=== PATIENT | female | born 1965 | race Caucasian/White ===

== ENCOUNTER 2025-02-19 21:12 | Emergency (ER) | payer OTHER, SELFPAY ==
[2025-02-19 21:32] VITALS: BP 141/88
[2025-02-20 00:40] VITALS: BP 140/80
--- NOTE | 2025-02-20 00:51 | ED.GENMED ---
History of Present Illness
General
Chief Complaint: Musculo-Skeletal Complaint
Source: patient
Exam Limitations: none
Time Seen by Provider: 02/19/25 23:12
History of Present Illness
History of Present Illness:
This is a 59-year-old female who presents with concerns of pain and swelling of her toe. The patient dropped a sink basin on her toe yesterday she was seen urgent care and diagnosed with fracture of first and second toe. Patient reports today that
she has sort of a numbness send there was a paleness to it when she had her foot up elevated on the couch. Patient just became concerned and wanted to know if it was normal. She does have a postop shoe
Past History
Past History
ED Past Medical History: None
ED Past Surgical History: None
Social History
Tobacco: Non-smoker
Alcohol: None
Drug: None
Living: with family
Family History
Family History: Other (Father with non-Hodgkin's lymphoma, renal cell carcinoma and bladder cancer)
Phy Exam
Physical Exam
Physical Exam:
CONSTITUTIONAL Vital signs reviewed, Patient alert and oriented to person, place and time. Well-appearing
HEAD atraumatic, normocephalic.
EYES eyelids normal to inspection, Extraocular muscles intact, Conjunctiva normal, Sclera normal.
NECK normal range of motion, Trachea midline, no jugular venous distention.
RESP no respiratory distress
BACK No obvious deformities
UPPER EXTREMITY Gross Range of motion normal, gross motor strength normal
LOWER EXTREMITY Gross range of motion normal, Gross motor strength normal. Skin abrasion noted to the area just proximal to the nailbed. She has a small subungual hematoma. She has moderate swelling throughout the great toe. She also has some
ecchymosis noted to the second digit on the right. She has normal dorsalis pedis pulses
NEURO Speech normal, No focal motor deficits include, Valentin coma scale 15, Memory normal, Cranial Nerves intact to screening exam.
SKIN Skin warm, dry, and normal in color.
PSYCHIATRIC Patient oriented to person place and time, Normal affect.
Course
Vital Signs
Initial and Last Documented VS:
Initial Vital Signs
Temp Pulse Resp BP Pulse Ox
98.2 F 64 20 141/88 98
02/19/25 21:32 02/19/25 21:32 02/19/25 21:32 02/19/25 21:32 02/19/25 21:32
Last Documented Vital Signs
Temp Pulse Resp BP Pulse Ox
98.2 F 56 18 140/80 98
02/19/25 21:32 02/20/25 00:40 02/20/25 00:40 02/20/25 00:40 02/20/25 00:40
*Pulse Oximetry
Patient hypoxic: no
*Critical Care Note
Total Time (30-74mins, 75-104mins- exclusive of procedures): Not Applicable
Data Reviewed
Source: patient
Further Testing Considered But Not Given:
Consider repeat imaging no new changes.
Patient Management
Escalation/DeEscalation of care consider admission/obs:
Suspect symptoms related to the mild swelling related to the fractures. Will refer to orthopedic podiatry
ED Attending Note
-
Portions of this chart may have been created with voice recognition software.� Occasional wrong word or��sound alike� substitutions may have occurred due to the inherent limitations of voice recognition software.
Discharge Plan
Departure
Patient Disposition: Home (Routine Discharge)
Date of Disposition: 02/20/25
Time of Disposition: 00:52
Patient with high blood pressure during this ER visit?: No
Discharge Problem:
Fracture of toe
Instructions: Toe fracture
Prescriptions:
No Action
tamsulosin 0.4 MG capsule
0.4 mg PO DAILY Qty: 10 0RF
oxycodone-acetaminophen 5 MG/325 MG tablet
1 tab PO Q4HPRN PRN (Reason: pain) Qty: 10 0RF
Referrals:
Kyara Knight MD [Family Provider] -
Fernando Evans DPM [Active] -
Activity Restrictions/Additional Instructions:
Please see podiatry in the next 3 to 5 days for follow-up and reevaluation. Continue ice and ibuprofen for pain control. Keep wound clean and dry.
Interventions
Interventions:
*Risk Screen - Suicide Last Done: 02/19/25 21:37
*General Assessment Last Done: 02/19/25 21:32
*Neglect/Abuse Screening Last Done: 02/19/25 21:32
*ED- Fall Risk Assessment Last Done: 02/19/25 21:32
*ED COVID-19 Vaccine History Last Done: 02/19/25 21:32
ED-Musculoskeletal Assessment Last Done: 02/20/25 00:00
Discharge Date and Time
Print Language: [id number]
== END 2025-02-20 01:08 | disposition home or self-care (01) ==
LOC: EMR 21:12
PROVIDERS: EMERGENCY PHYSICIAN Emergency Medicine; FAMILY PHYSICIAN Family Medicine
DX: S92.401A Displaced unspecified fracture of right great toe, initial encounter for closed fracture (principal); S90.211A Contusion of right great toe with damage to nail, initial encounter; S92.501A Displaced unspecified fracture of right lesser toe(s), initial encounter for closed fracture; W20.8XXA Other cause of strike by thrown, projected or falling object, initial encounter
CPT/HCPCS: 99282

== ENCOUNTER 2025-03-22 08:34 | Day surgery (SDC) | payer OTHER, SELFPAY ==
[2025-03-22 11:15] LABS: % Basophils 0.4 % (0-2); % Eosinophils 11.7 % (0-6); % Immature Granulocytes 0.3 % (0-0.5); % Neutrophils 55.6 % (42.2-75.2); Absolute Eosinophils 0.9 10^3/uL (0-0.7); Absolute Monocytes 0.4 10^3/uL (0.1-0.6); Absolute Neutrophils 4.1 10^3/uL (1.4-6.5); Hematocrit 41.1 % (37.0-47.0); Mean Corp Hgb Conc. 34.1 g/dL (33.0-37.0); Mean Corpuscular Volume 94.1 fL (81.0-99.0); Mean Platelet Volume 9.5 fL (7.4-10.4); Nucleated Red Blood Cells % 0 %; Platelet Count 212 10^3/uL (130-400); Red Blood Cell Count 4.37 10^6/uL (4.20-5.40); Red Cell Dist. Width 11.9 % (11.5-14.5); White Blood Cell Count 7.3 10^3/uL (4.8-10.8)
[2025-03-22 12:00] LABS: Blood Urea Nitrogen 17 mg/dl (7-17); Calcium 9.6 mg/dl (8.4-10.2); Carbon Dioxide 27 mmol/L (22-30); Chloride 104 mmol/L (98-107); Glucose 92 mg/dl (70-99); Sodium 142 mmol/L (135-145); eGFR > 60.00
[2025-03-22 14:34] VITALS: BMI 24.2
[2025-03-22 14:35] VITALS: BP 158/95; BMI 24.2
[2025-03-22 17:15] VITALS: BP 121/71
[2025-03-22 17:30] VITALS: BP 144/83
[2025-03-22 17:50] VITALS: BP 130/79
== END 2025-03-22 17:55 | disposition home or self-care (01) ==
LOC: SDS 08:34
PROVIDERS: ATTENDING PHYSICIAN Student in an Organized Health Care Education/Training Program; FAMILY PHYSICIAN Family Medicine
DX: S92.421B Displaced fracture of distal phalanx of right great toe, initial encounter for open fracture (principal); M86.8X7 Other osteomyelitis, ankle and foot; X58.XXXA Exposure to other specified factors, initial encounter
CPT/HCPCS: 28124; 88304; 88311; 36415; 80048; 85025; 87070; 87075; 87076; 87077; 87147; 87186; 87205; 93005